=== PATIENT | female | born 1955 | race Caucasian/White ===

== ENCOUNTER 2019-01-26 08:24 | Inpatient (IN) | payer BC ==
[2019-01-24 12:12] LABS: BASOPHILS # (AUTO) 0.1 X10'3 (0-0.2); BASOPHILS % (AUTO) 0.7 % (0-1); EOSINOPHILS # (AUTO) 0.3 X10'3 (0-0.9); EOSINOPHILS % (AUTO) 4.1 % (0-6); LYMPHOCYTES % (AUTO) 26.4 % (21-51); MEAN CORPUSCULAR HEMOGLOBIN 30.9 PG (27.0-31.0); MEAN CORPUSCULAR HGB CONC 34.7 g/dL (33.0-36.5); MEAN CORPUSCULAR VOLUME 89.1 FL (78-98); MONOCYTES # (AUTO) 0.5 X10'3 (0-0.9); MONOCYTES % (AUTO) 6.7 % (2-12); NEUTROPHILS # (AUTO) 4.8 X10'3 (1.8-7.7); NEUTROPHILS % (AUTO) 62.1 % (42-75); PRE OP HEMOGLOBIN 15.6 g/dL (12.0-16.0); PRE OP PLATELET COUNT 187 X10'3 (140-440); RED BLOOD COUNT 5.06 X10'6 (4.20-5.60); RED CELL DISTRIBUTION WIDTH 12.7 % (11.5-14.5)
[2019-01-24 12:20] LABS: PRE OP PROTIME 10.2 SECONDS (9.0-12.0)
[2019-01-24 12:34] LABS: ALBUMIN 4.2 G/DL (3.4-5.0); ALBUMIN/GLOBULIN RATIO 1.1 (1.1-1.5); ALKALINE PHOSPHATASE 54 IU/L (46-116); BLOOD UREA NITROGEN 16 MG/DL (7-18); BUN/CREATININE RATIO 20.8 (6.6-38.0); CALCIUM 9.7 MG/DL (8.5-10.1); CHLORIDE 104 MMOL/L (99-107); CREATININE 0.77 MG/DL (0.40-0.90); PRE OP ALT 57 U/L (30-65); PRE OP ANION GAP 8 (8-16); PRE OP AST 25 U/L (10-37); PRE OP BILIRUB, TOTAL 0.5 MG/DL (0.0-1.0); PRE OP GLUCOSE 105 MG/DL (70-104); PRE OP POTASSIUM 3.8 MMOL/L (3.4-5.1); PRE OP SODIUM 139 MMOL/L (135-145); TOTAL CARBON DIOXIDE 26.6 MMOL/L (24-32); eGFR 75 ML/MIN
[2019-01-24 13:28] LABS: CLARITY,URINE CLEAR (Clear); COLOR,URINE STRAW (Yellow); GLUCOSE, URINE NEGATIVE (Neg); KETONES,URINE NEGATIVE (Neg); LEUKOCYTE ESTERASE ,URINE SMALL (Neg); NITRITES, URINE NEGATIVE (Neg); OCCULT BLOOD,URINE TRACE-INTACT (Neg); PH,URINE 6.5 (4.8-8.0); PROTEIN,URINE NEGATIVE (Neg); UROBILINOGEN,URINE 0.2 E.U/dL (0.2-1.0)
[2019-01-24 13:46] LABS: UA COLLECTION TYPE CLN CATCH MIDSTREAM
[2019-01-24 13:47] LABS: RBC,URINE 0-2 /HPF (0-2)
[2019-01-24 13:49] LABS: BACTERIA,URINE FEW /HPF (Neg); MUCUS STRANDS NONE SEEN /LPF (Neg); SQUAMOUS EPITHELIAL CELL,UR MODERATE /LPF (FEW)
[2019-01-26] VITALS (23 sets, daily range): BP systolic 11–162; BP diastolic 50–88
[~2019-01-26] VITALS: Ht 152.4 cm; Wt 84.4 kg
[~2019-01-26 08:24] MED LIST: NO HOME MEDS; famotidine 20mg tablet PO ONE; ringers solution, lacted 1,000 ML IV SCH
[2019-01-26] MEDS ORDERED: cefazolin/dext.iso 2gm/100 ML IV ONE (08:30)
[2019-01-26] MEDS ORDERED: LIDOcaine 1% (10mg/ml) 2ml vial ONE (10:37)
[2019-01-26] MEDS ORDERED: sevoflurane 250ml liquid IH ONE (11:16)
[2019-01-26] MEDS ORDERED: atropine 1 MG/1 ML vial ONE (11:16)
[2019-01-26] MEDS ORDERED: midazolam 2 mg/2 ml injection ONE (11:20)
[2019-01-26] MEDS ORDERED: fentaNYL /PF 50mcg/ml 5ml ampule ONE (11:20)
[2019-01-26] MEDS ORDERED: glycopyrrolate 0.2mg/ml inj ONE (14:01)
[2019-01-26] MEDS ORDERED: rocuronium 10mg/ml inj IV ONE (14:01)
[2019-01-26] MEDS ORDERED: dexamethasone sod phosphate 4mg/ml inj. ONE (14:01)
[2019-01-26] MEDS ORDERED: neostigmine methylsulfate 1 MG/ML 10ml vial ONE (14:01)
[2019-01-26] MEDS ORDERED: LIDOcaine 2% (20mg/ml) 5ml vial ONE (14:01)
[2019-01-26] MEDS ORDERED: ondansetron/PF 4mg/2ml inj ONE (14:01)
[2019-01-26] MEDS ORDERED: phenylephrine 10mg/ml inj. ONE (14:01)
[2019-01-26] MEDS ORDERED: propofol inj 20 ML IV ONE (14:01)
[2019-01-26] MEDS ORDERED: ondansetron/PF 4mg/2ml inj IV PRN (14:30)
[2019-01-26] MEDS ORDERED: meperidine/PF 50mg/ml syringe ONE (14:34)
--- NOTE | 2019-01-26 14:40 | NUR ---
Received from OR via BED, accompanied by Anesthesiologist ROSMERY and report given by Anesthesiolgist. PT DROWSY, OXYGENATING WELL ON 10 LPM O2 VIA MASK, NO RESP DISTRESS NOTED. DENIES NAUSEA, C/O MODERATE POST OP PAIN IN R CHEST. DILUADID CADD STARTED, PT EDUCATED ON ITS USE. 2 CHEST TUBES TO R LATERAL CHEST, DSG CDI. TO 20 CM SX. NO AIR LEAK NOTED. FC PATENT, SCDS ON. VSS.
[2019-01-26 15:30] LABS: ABG BASE EXCESS -6.2 mmol/L (-2.0-3.0); ABG OXYGEN SATURATION 93.4 % (95-98); ABG PCO2 (T) 54.6 mmHg (32.0-45.0); ABG PH (T) 7.224 (7.350-7.450); ABG PO2 (T) 76.2 mmHg (83-108); FCOHb 0.3 % (0.5-1.5); FLOW 9 L/min; FMetHb 0.3 % (0.3-1.12); FO2Hb 92.8 % (94-100); TOTAL HEMOGLOBIN 14.9 G/dl (12.0-16.0)
[2019-01-26] MEDS: HYDROmorphone/NS 1 mg/ml CADD 50 ML IV SCH ×6 (15:39→23:00)
[2019-01-26] MEDS ORDERED: ceFAZolin inj. 1,000 MG in dextrose 5%-water 50ml 50 ML IV SCH (16:00)
--- NOTE | 2019-01-26 17:18 | NUR ---
Received report from CHU Lee. Awaiting patient arrival to room 360b.
--- NOTE | 2019-01-26 17:40 | NUR ---
Report called to receiving nurse. Transferred via BED Belongings WITH PT. POST OP CXR AND ABG DONE. TOLERATING PO FLUIDS WELL. VSS, PAIN WELL CONTROLLED WITH DILUADID CADD. TRANSFERRED TO 3 SURG IN STABLE CONDITION. Special Issues communicated to receiving nurse.
--- NOTE | 2019-01-26 17:58 | NUR ---
Received patient to room 360B in bed accompanied by x1 staff. Patient is alert and oriented and in no apparent distress. Chest tube to 20cm suction. Sanguinous drainage in drainage chamber. BLL, side rails x2 up, call light within reach, oriented to room and call light. Visitors at bedside.
--- NOTE | 2019-01-26 18:00 | NUR ---
Patient in room [facility]. I have received report from Radha SAGE and had the opportunity to ask questions and assume patient care.
[2019-01-26] MEDS ORDERED: ceFAZolin 1GM/D5W- ADD-VANTAGE 50 ML IV SCH (18:12)
--- NOTE | 2019-01-26 18:32 | NUR ---
Problems reprioritized. Patient report given, questions answered & plan of care reviewed with CHU Issa.
[2019-01-26 19:26] LABS: ABG BASE EXCESS -5.2 mmol/L (-2.0-3.0); ABG HCO3 20.6 mmol/L (22.0-26.0); ABG OXYGEN SATURATION 94.9 % (95-98); ABG PCO2 (T) 40.8 mmHg (32.0-45.0); ABG PO2 (T) 77.5 mmHg (83-108); ALLEN'S TEST Positive; FCOHb 0.6 % (0.5-1.5); FLOW 2 L/min; FMetHb 0.3 % (0.3-1.12); PATIENT TEMPERATURE 36.9; TOTAL HEMOGLOBIN 15.1 G/dl (12.0-16.0)
[2019-01-26] MEDS: potassium CL 20mEq in D5-1/2NS 1,000 ML IV SCH (21:07)
--- NOTE | 2019-01-26 21:30 | NUR ---
Received return call from Dr. Saha, results of ABG read to him, output of 100 ml and oxygen administration remains at 2 L/min and oxygen saturation has been between 91-94%. States no changes at this time, report to him if any changes. Will continue to monitor.
[2019-01-27] VITALS: BP 119/50
[2019-01-27] MEDS: potassium CL 20mEq in D5-1/2NS 1,000 ML IV SCH ×3 (00:41→18:08)
[2019-01-27] MEDS: HYDROmorphone/NS 1 mg/ml CADD 50 ML IV SCH ×12 (01:00→23:00)
[2019-01-27 04:00] VITALS: BP 135/51
[2019-01-27 05:35] LABS: ALBUMIN 3.4 G/DL (3.4-5.0); ANION GAP 4 (8-16); BLOOD UREA NITROGEN 14 MG/DL (7-18); BUN/CREATININE RATIO 15.6 (6.6-38.0); CALCIUM 8.5 MG/DL (8.5-10.1); CHLORIDE 106 MMOL/L (99-107); GLUCOSE 165 MG/DL (70-104); POTASSIUM 4.6 MMOL/L (3.5-5.1); SODIUM 137 MMOL/L (135-145); TOTAL CARBON DIOXIDE 27.1 MMOL/L (24-32); eGFR 63 ML/MIN
--- NOTE | 2019-01-27 05:51 | NUR ---
Assisted patient to side of bed, stood and pivoted well with assistance, states severe pain at chest tube side, no air leak present, will continue to monitor.
[2019-01-27 05:56] LABS: BASOPHILS % (AUTO) 0.1 % (0-1); EOSINOPHILS % (AUTO) 0 % (0-6); HEMATOCRIT 39.1 % (35.0-45.0); HEMOGLOBIN 13.3 g/dl (12.0-16.0); LYMPHOCYTES # (AUTO) 0.7 X10'3 (1.1-4.8); LYMPHOCYTES % (AUTO) 3.6 % (21-51); MEAN CORPUSCULAR HEMOGLOBIN 30.3 PG (27.0-31.0); MEAN CORPUSCULAR VOLUME 89.2 FL (78-98); MEAN PLATELET VOLUME 10.1 FL (7.4-10.4); MONOCYTES # (AUTO) 1.1 X10'3 (0-0.9); MONOCYTES % (AUTO) 5.4 % (2-12); NEUTROPHILS # (AUTO) 17.8 X10'3 (1.8-7.7); NEUTROPHILS % (AUTO) 90.9 % (42-75); PLATELET COUNT 174 X10'3 (140-440); RED BLOOD COUNT 4.38 X10'6 (4.20-5.60); RED CELL DISTRIBUTION WIDTH 12.7 % (11.5-14.5); WHITE BLOOD COUNT 19.6 X10'3 (4.5-11.0)
--- NOTE | 2019-01-27 06:50 | NUR ---
Problems reprioritized. Patient report given, questions answered & plan of care reviewed with Karlene SAGE.
--- NOTE | 2019-01-27 06:50 | NUR ---
Agree with care observed and charting reviewed for Saji SAGE.
[2019-01-27 07:00] VITALS: BP 125/66
[2019-01-27 10:00] LABS: PLATELET ESTIMATE NORMAL; TOTAL CELLS COUNTED 100
[2019-01-27 11:00] VITALS: BP 121/70
[2019-01-27] MEDS ORDERED: HYDROcodone/acetaminophen 10/325mg tab PO PRN (14:15)
[2019-01-27] MEDS: ceFAZolin 1GM/D5W- ADD-VANTAGE 50 ML IV SCH ×2 (15:14→23:18)
--- NOTE | 2019-01-27 17:26 | NUR ---
Dr. Saha aware of chest tube accidently getting pulled during position change. MD stated to place chest tube back to suction.
--- NOTE | 2019-01-27 17:31 | NUR ---
Dr. Saha was notified of CT tubing quickly reconnected after briefly being pulled apart during transfer to chair. Pt denies SOB, CT continues to drain clear serosang fluid, no air leak observed, and pt's report that CT "feels a little different now". ordered pt to be placed back on suction, with no other orders at this time.
[2019-01-27 18:00] VITALS: BP 129/64
--- NOTE | 2019-01-27 18:10 | NUR ---
Patient in room [facility]. I have received report from Karlene SAGE and had the opportunity to ask questions and assume patient care.
--- NOTE | 2019-01-27 19:08 | NUR ---
Problems reprioritized. Patient report given, questions answered & plan of care reviewed with Sahra SAGE.
--- NOTE | 2019-01-27 22:05 | NUR ---
IJ d/c'd. pt tolerated well. educated pt. tip intact. will continue to monitor.
[2019-01-28] VITALS: BP 119/65
[2019-01-28] MEDS: HYDROmorphone/NS 1 mg/ml CADD 50 ML IV SCH ×12 (01:00→23:00)
[2019-01-28 06:16] LABS: ALBUMIN 3.2 G/DL (3.4-5.0); ANION GAP 6 (8-16); BLOOD UREA NITROGEN 10 MG/DL (7-18); BUN/CREATININE RATIO 15.9 (6.6-38.0); CALCIUM 8.3 MG/DL (8.5-10.1); CHLORIDE 107 MMOL/L (99-107); CREATININE 0.63 MG/DL (0.40-0.90); GLUCOSE 107 MG/DL (70-104); POTASSIUM 3.8 MMOL/L (3.5-5.1); SODIUM 141 MMOL/L (135-145); TOTAL CARBON DIOXIDE 28.4 MMOL/L (24-32); eGFR > 90 ML/MIN
--- NOTE | 2019-01-28 06:36 | NUR ---
Problems reprioritized. Patient report given, questions answered & plan of care reviewed with Cristopher RN.
[2019-01-28 06:44] LABS: BASOPHILS % (AUTO) 0.3 % (0-1); EOSINOPHILS # (AUTO) 0.2 X10'3 (0-0.9); EOSINOPHILS % (AUTO) 1.5 % (0-6); HEMATOCRIT 38.3 % (35.0-45.0); HEMOGLOBIN 12.8 g/dl (12.0-16.0); LYMPHOCYTES # (AUTO) 1.4 X10'3 (1.1-4.8); MEAN CORPUSCULAR HEMOGLOBIN 30.3 PG (27.0-31.0); MEAN CORPUSCULAR HGB CONC 33.5 g/dL (33.0-36.5); MEAN CORPUSCULAR VOLUME 90.5 FL (78-98); MEAN PLATELET VOLUME 10.2 FL (7.4-10.4); MONOCYTES # (AUTO) 0.8 X10'3 (0-0.9); MONOCYTES % (AUTO) 6.5 % (2-12); NEUTROPHILS # (AUTO) 10.2 X10'3 (1.8-7.7); NEUTROPHILS % (AUTO) 80.7 % (42-75); PLATELET COUNT 137 X10'3 (140-440); RED BLOOD COUNT 4.23 X10'6 (4.20-5.60); WHITE BLOOD COUNT 12.7 X10'3 (4.5-11.0)
[2019-01-28 07:00] VITALS: BP 139/70
--- NOTE | 2019-01-28 07:26 | NUR ---
Patient in room [facility]. I have received report from DEANN SAGE and had the opportunity to ask questions and assume patient care.
[2019-01-28] MEDS: ceFAZolin 1GM/D5W- ADD-VANTAGE 50 ML IV SCH ×2 (09:23→16:58)
[2019-01-28 11:00] VITALS: BP 124/60
--- NOTE | 2019-01-28 18:14 | NUR ---
Patient in room [facility]. I have received report from CHU Rao and had the opportunity to ask questions and assume patient care.
--- NOTE | 2019-01-28 18:30 | NUR ---
Problems reprioritized. Patient report given, questions answered & plan of care reviewed with Arnol SAGE.
[2019-01-28 20:00] VITALS: BP 130/64
[2019-01-28 23:00] VITALS: BP 129/65
[2019-01-29] MEDS: ceFAZolin 1GM/D5W- ADD-VANTAGE 50 ML IV SCH ×3 (00:52→16:33)
[2019-01-29] MEDS: HYDROmorphone/NS 1 mg/ml CADD 50 ML IV SCH ×12 (01:00→23:00)
[2019-01-29 05:58] LABS: BASOPHILS # (AUTO) 0.1 X10'3 (0-0.2); BASOPHILS % (AUTO) 0.6 % (0-1); EOSINOPHILS # (AUTO) 0.3 X10'3 (0-0.9); EOSINOPHILS % (AUTO) 3.3 % (0-6); HEMATOCRIT 39.8 % (35.0-45.0); HEMOGLOBIN 13.6 g/dl (12.0-16.0); LYMPHOCYTES # (AUTO) 1.7 X10'3 (1.1-4.8); LYMPHOCYTES % (AUTO) 16.8 % (21-51); MEAN CORPUSCULAR HEMOGLOBIN 30.5 PG (27.0-31.0); MEAN CORPUSCULAR HGB CONC 34.3 g/dL (33.0-36.5); MEAN PLATELET VOLUME 9.8 FL (7.4-10.4); MONOCYTES # (AUTO) 0.9 X10'3 (0-0.9); MONOCYTES % (AUTO) 9.2 % (2-12); NEUTROPHILS # (AUTO) 7.1 X10'3 (1.8-7.7); NEUTROPHILS % (AUTO) 70.1 % (42-75); PLATELET COUNT 146 X10'3 (140-440); RED BLOOD COUNT 4.47 X10'6 (4.20-5.60); RED CELL DISTRIBUTION WIDTH 12.7 % (11.5-14.5); WHITE BLOOD COUNT 10.1 X10'3 (4.5-11.0)
[2019-01-29 06:11] LABS: ALBUMIN 3.1 G/DL (3.4-5.0); ANION GAP 5 (8-16); BLOOD UREA NITROGEN 8 MG/DL (7-18); BUN/CREATININE RATIO 13.1 (6.6-38.0); CHLORIDE 105 MMOL/L (99-107); CREATININE 0.61 MG/DL (0.40-0.90); GLUCOSE 110 MG/DL (70-104); POTASSIUM 3.6 MMOL/L (3.5-5.1); SODIUM 140 MMOL/L (135-145); TOTAL CARBON DIOXIDE 29.9 MMOL/L (24-32); eGFR > 90 ML/MIN
--- NOTE | 2019-01-29 06:30 | NUR ---
Patient in room [facility]. I have received report from Arnol SAGE and had the opportunity to ask questions and assume patient care.
--- NOTE | 2019-01-29 06:42 | NUR ---
Problems reprioritized. Patient report given, questions answered & plan of care reviewed with CHU Rao.
[2019-01-29 07:00] VITALS: BP 117/73
[2019-01-29] MEDS: enoxaparin 40mg/0.4ml syringe SUBCUT SCH (09:17)
[2019-01-29 11:00] VITALS: BP 118/64
[2019-01-29] MEDS: potassium CL 20mEq in D5-1/2NS 1,000 ML IV SCH (15:25)
--- NOTE | 2019-01-29 18:30 | NUR ---
Problems reprioritized. Patient report given, questions answered & plan of care reviewed with Rosa SAGE.
--- NOTE | 2019-01-29 18:44 | NUR ---
Patient in room [facility]. I have received report from Cristopher medina and had the opportunity to ask questions and assume patient care.
[2019-01-29 19:00] VITALS: BP 120/71
[2019-01-29] MEDS: lactobacillus rhamnosus 10,000 MMU CELLS/CAPSULE PO SCH (20:49)
[2019-01-30] VITALS: BP 122/59
[2019-01-30] MEDS: ceFAZolin 1GM/D5W- ADD-VANTAGE 50 ML IV SCH ×3 (00:09→16:16)
[2019-01-30] MEDS: HYDROmorphone/NS 1 mg/ml CADD 50 ML IV SCH ×6 (01:00→11:00)
--- NOTE | 2019-01-30 06:00 | NUR ---
Problems reprioritized. Patient report given, questions answered & plan of care reviewed with Lakshmi SAGE.
[2019-01-30 06:11] LABS: BASOPHILS % (AUTO) 0.4 % (0-1); EOSINOPHILS # (AUTO) 0.4 X10'3 (0-0.9); EOSINOPHILS % (AUTO) 4.4 % (0-6); HEMATOCRIT 42.7 % (35.0-45.0); HEMOGLOBIN 14.3 g/dl (12.0-16.0); LYMPHOCYTES # (AUTO) 1.8 X10'3 (1.1-4.8); LYMPHOCYTES % (AUTO) 22.6 % (21-51); MEAN CORPUSCULAR HEMOGLOBIN 30.2 PG (27.0-31.0); MEAN CORPUSCULAR HGB CONC 33.4 g/dL (33.0-36.5); MEAN CORPUSCULAR VOLUME 90.4 FL (78-98); MEAN PLATELET VOLUME 9.6 FL (7.4-10.4); MONOCYTES # (AUTO) 0.6 X10'3 (0-0.9); MONOCYTES % (AUTO) 7.4 % (2-12); NEUTROPHILS # (AUTO) 5.3 X10'3 (1.8-7.7); NEUTROPHILS % (AUTO) 65.2 % (42-75); PLATELET COUNT 176 X10'3 (140-440); RED BLOOD COUNT 4.73 X10'6 (4.20-5.60); RED CELL DISTRIBUTION WIDTH 12.9 % (11.5-14.5); WHITE BLOOD COUNT 8.2 X10'3 (4.5-11.0)
[2019-01-30 06:37] LABS: ALBUMIN 3.4 G/DL (3.4-5.0); ANION GAP 6 (8-16); BLOOD UREA NITROGEN 12 MG/DL (7-18); BUN/CREATININE RATIO 17.1 (6.6-38.0); CALCIUM 9.9 MG/DL (8.5-10.1); CHLORIDE 104 MMOL/L (99-107); GLUCOSE 103 MG/DL (70-104); POTASSIUM 3.8 MMOL/L (3.5-5.1); SODIUM 140 MMOL/L (135-145); eGFR 84 ML/MIN
[2019-01-30 07:30] VITALS: BP 110/65
[2019-01-30] MEDS: enoxaparin 40mg/0.4ml syringe SUBCUT SCH (07:40)
[2019-01-30] MEDS: lactobacillus rhamnosus 10,000 MMU CELLS/CAPSULE PO SCH (07:46)
[2019-01-30 11:00] VITALS: BP 147/73
[2019-01-30] MEDS ORDERED: HYDROcodone/acetaminophen 10/325mg tab PO PRN ×3 (12:35→12:40)
[2019-01-30] MEDS ORDERED: CADD PCA waste documentation MC SCH (15:15)
--- NOTE | 2019-01-30 18:18 | NUR ---
PT DISCHARGED IN STABLE CONDITION. LEFT FACILITY IN PRIVATE VEHICLE WITH FRIEND. IV DC CANULA INTACT. ALL BELONGINGS IN HAND. FOLLOW UP INSTRUCTIONS GIVEN, ALL QUESTIONS ANSWERED.
== END 2019-01-30 18:15 | disposition home or self-care (01) | DRG 164 ==
LOC: PAS IN 08:24 → EDSTATUS 10:30 → SUR 3N 17:45
PROVIDERS: ADMIT Surgery; ATTEND Surgery
PROC: 0W9940Z Drainage of Right Pleural Cavity with Drainage Device, Percutaneous Endoscopic Approach (ICD-10-PCS; 2019-01-26)
PROC: 0BBF4ZX Excision of Right Lower Lung Lobe, Percutaneous Endoscopic Approach, Diagnostic (ICD-10-PCS; 2019-01-26)
PROC: 0BBD4ZX Excision of Right Middle Lung Lobe, Percutaneous Endoscopic Approach, Diagnostic (ICD-10-PCS; 2019-01-26)
PROC: 0BBN4ZX Excision of Right Pleura, Percutaneous Endoscopic Approach, Diagnostic (ICD-10-PCS; 2019-01-26)
PROC: 02HV33Z Insertion of Infusion Device into Superior Vena Cava, Percutaneous Approach (ICD-10-PCS; 2019-01-26)
PROC: 0B5N4ZZ Destruction of Right Pleura, Percutaneous Endoscopic Approach (ICD-10-PCS; principal; 2019-01-26 11:16)
DX: C34.31 Malignant neoplasm of lower lobe, right bronchus or lung (principal); C34.2 Malignant neoplasm of middle lobe, bronchus or lung
CPT/HCPCS: 36415; 36600; 71045; 71046; 80048; 80053; 81001; 82803; 82948; 85018; 85025; 85610; 85730; 86885; 86900; 86901; 87070; 87075; 87088; 87102; 93005; 97034; 97110; 97116; 97162; A6255; A6257; A6258; A6449; A7000; A7048; C1758; C9250; G0378; J0461; J0690; J1100; J1170; J1650; J2001; J2175; J2250; J2370; J2405; J2704; J2710; J3010; J3490; J7060; J7120

== ENCOUNTER 2020-08-13 08:00 | Day surgery (SDC) | payer MEDICARE, BC ==
[~2020-08-13] VITALS: Ht 152.4 cm; Wt 88.0 kg
[~2020-08-13 08:00] MED LIST changes: -famotidine 20mg tablet PO ONE; -ringers solution, lacted 1,000 ML IV SCH
[2020-08-13 08:45] VITALS: BP 168/88
[2020-08-13] MEDS ORDERED: PEMB100V (09:19)
[2020-08-13] MEDS ORDERED: LEVO100C4 PO (09:19)
[2020-08-13] MEDS ORDERED: tPA-cathflo 2 MG/2 ml IV flush ONE (10:02)
[2020-08-13 10:25] VITALS: BP 141/94
--- NOTE | 2020-08-13 10:27 | NUR ---
2MG OF TPA IN 5ML INSTILLED INTO PORT PER DR TOBIN ORDERED
== END 2020-08-13 10:25 | disposition home or self-care (01) ==
LOC: SSTAY O 08:00
PROVIDERS: ATTEND Radiology Diagnostic Radiology
DX: C34.81 Malignant neoplasm of overlapping sites of right bronchus and lung (principal); K21.9 Gastro-esophageal reflux disease without esophagitis; Z98.890 Other specified postprocedural states; Z79.899 Other long term (current) drug therapy
CPT/HCPCS: 36593; J2997